=== PATIENT | male | born 1945 | race Caucasian/White ===

== ENCOUNTER 2017-01-05 09:22 | Day surgery (SDC) | payer OTHER, MEDICARE ==
--- NOTE | 2016-12-20 10:12 | GHP ---
[f rep st] PREOP HISTORY AND PHYSICAL DATE OF ADMISSION: [facility] PROBLEM: Right shoulder rotator cuff tear. HISTORY OF PRESENT ILLNESS: The patient is a 71-year-old man, admitted for right shoulder partial acromionectomy and rotator cuff repair. He has had trouble with his right shoulder for about 9 months. He is right handed. He has trouble sleeping on the right shoulder. The shoulder is sore after playing golf. He has been occasionally using ibuprofen. He had an MRI which shows severe partial distal supraspinatus tendon tear. He also has tendinopathy of the infraspinatus. Moderate degenerative change in his AC joint. He tried physical therapy for 6 weeks with only modest improvement. He continues to have soreness. PAST MEDICAL HISTORY: Overall he is in good general health. He is treated for elevated cholesterol. He recently developed some soreness and pain in his right knee. He has had a recent knee MRI. No history of heart disease, stents , DVT, hepatitis, or sleep apnea. CURRENT MEDICATIONS: Atorvastatin 10 mg per day. DRUG ALLERGIES: None. SOCIAL HISTORY: The patient is . He is retired. He does not smoke cigarettes and occasionally drinks alcohol. FAMILY HISTORY: Positive for diabetes, cancer, arthritis and a bleeding tendency. PHYSICAL EXAMINATION: GENERAL: He is an alert, healthy-appearing man. Height 6 feet 1 inch. Weight 200 pounds. BMI 26.4. EYES: The conjunctivae and sclerae are clear. Pupils are round and reactive. MOUTH: Good oral hygiene. No loose teeth. CHEST: Clear. HEART: Regular rhythm. No murmurs. EXTREMITIES: Pertinent findings limited to his right shoulder. He has 160 degrees of abduction and forward flexion. He is not tender over the AC joint. The long head of his biceps is intact. IMAGING STUDIES: Films show moderate AC joint arthritis. The subacromial space is well maintained. He has moderate downward slope to his acromion. IMPRESSION ON ADMISSION: 1. Right shoulder rotator cuff tendinopathy and probable full-thickness tear. 2. Treatment for elevated cholesterol. PLAN: He will undergo a right shoulder partial acromionectomy and rotator cuff repair. The surgery has been described to him, including the risks, complications, expectations, and recovery time. I have stressed the importance of postoperative physical therapy. We have discussed the use of an abduction pillow postoperatively. All his questions have been answered, and he consents to surgery. /[id number]/MODL MTDD
--- NOTE | 2017-01-03 13:41 | GHP ---
[f rep st] PREOP HISTORY AND PHYSICAL DATE OF ADMISSION: 01/05/2017 He will be an outpatient at [facility] on January 05, 2017. PROBLEM: Right knee lateral meniscus tear and loose body. HISTORY OF PRESENT ILLNESS: The patient is a 71-year-old man admitted for right knee arthroscopy with partial meniscectomy, chondroplasty, debridement and removal of loose body. He has had a longstanding history of pain and swelling in the right knee and has a remote history of a prior subtotal partial medial meniscectomy several decades ago. More recently, he has developed mechanical symptoms in the knee including catching and locking which has caused him to fall and is very concerning for him. He had a recent MRI which was a displaced lateral meniscus tear and a loose body residing in the intercondylar notch. PAST MEDICAL HISTORY: High cholesterol, GERD. CURRENT MEDICATIONS: Atorvastatin 10 mg p.o. daily, cholestyramine 4 mg p.o. daily, lansoprazole 30 mg p.o. daily. ALLERGIES: No known drug allergies. SOCIAL HISTORY: The patient is . He has retired. He does not smoke cigarettes. Occasional alcohol. FAMILY HISTORY: Noncontributory. PHYSICAL EXAMINATION: GENERAL: In no acute distress. He is alert and oriented. VITAL SIGNS: Height 6 feet 1 inch. Weight 200 pounds. BMI 26.4. HEAD: Normocephalic/atraumatic. EYES: The conjunctivae and sclerae are clear. CHEST: The lungs are clear to auscultation bilaterally. HEART: Regular rate and rhythm. EXTREMITIES: Examination of the right knee reveals scar from prior surgery. The skin is intact. No erythema or ecchymosis. There is a small effusion. Active range of motion is from roughly 5 to 125 degrees. He has tenderness over the medial and lateral joint lines. Positive Irene's. IMAGING STUDIES: A right knee MRI from December 17 revealed a displaced lateral meniscus tear and an intraarticular loose body in the setting of arthritis. IMPRESSION: Right knee osteoarthritis, unstable lateral meniscus tear and loose body. PLAN: He will undergo a right knee arthroscopy with partial meniscectomy, chondroplasty, debridement, and removal of loose body. The surgery has been described to him including the risks, complications, expectations, and recovery time. All of his questions have been answered, and he consents to the surgery. /[id number]/MODL MTDD
[~2017-01-05 09:22] MED LIST: ACETAMINOPHEN 500 MG TAB PO ONE; BUPIVACAINE 0.5% 30 ML SDV ONE; ceFAZolin 2 GM/DEXTROSE 100 ML IV ONE
[2017-01-05] MEDS ORDERED: LIDOCAINE 1% 2 ML INJ ID PRN (09:51)
[2017-01-05] MEDS ORDERED: LR 1,000 ML IV ONE (09:51)
[2017-01-05] MEDS ORDERED: DEPO METHYLPREDNISOLONE 40 MG/ML SDV ONE (09:56)
--- NOTE | 2017-01-05 10:02 | PDANEPAE ---
ANE History of Present Illness Patient presents for R knee scope ANE Past Medical History - Cardiovascular History Hx Hypertension: No Hx Arrhythmias: No Hx Chest Pain: No Hx Coronary Artery / Peripheral Vascular Disease: No Hx CHF / Valvular Disease: No Hx Palpitations: No - Pulmonary History Hx COPD: No Hx Asthma/Reactive Airway Disease: No Hx Recent Upper Respiratory Infection: No Hx Oxygen in Use at Home: No Hx Sleep Apnea: No Sleep Apnea Screening Result - Last Documented: Negative - Neurologic History Hx Cerebrovascular Accident: No Hx Seizures: No Hx Dementia: No - Endocrine History Hx Diabetes: No - Renal History Hx Renal Disorders: No - Liver History Hx Hepatic Disorders: No - Neurological & Psychiatric Hx Hx Neurological and Psychiatric Disorders: No - Cancer History Hx Cancer: No - Congenital Disorder History Hx Congenital Disorders: No - GI History GERD: mild Hx Gastrointestinal Disorders: Yes Gastrointestinal History Comment: GERD,REFLUX,HIATAL HERNIA. DIAHRREA - Other Health History Other Health History: ECZMA - Chronic Pain History Chronic Pain: Yes (RIGHT KNEE,) - Surgical History Prior Surgeries: GALL BLADDER REMOVED ANE Review of Systems Review of Systems: - Exercise capacity METS (RN): 4 METS ANE Patient History - Allergies Allergies/Adverse Reactions: ANIMAL DANDER,CATS,TREE POLLENS Allergy (Uncoded 08/18/12 11:59) RUNNY NOSE,ITCHY EYES - Home Medications Home medications: home medication list seen and reviewed Home Medications: Atorvastatin Calcium 12/16/16 [Last Taken Unknown] Cholestyramine Packet 12/16/16 [Last Taken Unknown] Fluocinonide 12/16/16 [Last Taken Unknown] Lansoprazole 12/16/16 [Last Taken Unknown] Triamcinolone 0.5% 12/16/16 [Last Taken Unknown] - Anes Hx Anes Hx: no prior problems - Smoking Hx Smoking Status: Never smoked - Family Anes Hx Family Hx Anesthesia Complications: NONE ANE Labs/Vital Signs - Vital Signs Height: 182.88 cm Weight: 81.647 kg ANE Physical Exam - Airway Neck exam: FROM Mallampati Score: Class 2 Mouth exam: normal dental/mouth exam - Pulmonary Pulmonary: no respiratory distress - Cardiovascular Cardiovascular: regular rate and rhythym - ASA Status ASA Status: II ANE Anesthesia Plan Anesthesia Plan: GA w LMA (RBA discussed)
[2017-01-05] MEDS ORDERED: PROPOFOL 200 MG/20 ML VIAL ONE (10:11)
[2017-01-05] MEDS ORDERED: ACETAMINOPHEN 500 MG TAB ONE (10:11)
[2017-01-05] MEDS ORDERED: fentaNYL 100 MCG/2 ML INJ ONE (10:11)
[2017-01-05] MEDS ORDERED: CEFAZOLIN 2 GM/DEXTROSE/100 ML BAG IV ONE (10:11)
[2017-01-05] MEDS ORDERED: LIDOCAINE 2% 5 ML SDV ONE (10:14)
[2017-01-05] MEDS ORDERED: DEXAMETHASONE 4 MG/ML VIAL ONE (10:38)
[2017-01-05] MEDS ORDERED: ONDANSETRON 4 MG/2 ML VIAL ONE (10:38)
[2017-01-05] MEDS ORDERED: NALOXONE HCL 0.4 MG/ML INJ IVP PRN (10:53)
[2017-01-05] MEDS ORDERED: ONDANSETRON 4 MG/2 ML VIAL IVP PRN (10:53)
[2017-01-05] MEDS ORDERED: OXYCODONE/APAP 5/325 TAB PO PRN (10:53)
[2017-01-05] MEDS ORDERED: LR 500 ML IV PRN (10:53)
[2017-01-05] MEDS ORDERED: fentaNYL 100 MCG/2 ML INJ IVP PRN (10:53)
[2017-01-05] MEDS ORDERED: HYDROCODONE/APAP 5/325 TAB PO PRN (10:53)
--- NOTE | 2017-01-05 11:20 | POSTOPPROG ---
Post Op Note Date of Operation: 01/05/17 Surgeon: Nino Mejias Academic Specialist: Mert Mejia Anesthesiologist: Estela Anesthesia: GET(General Endotracheal) Post-op Diagnosis: Right knee torn lateral meniscus. Procedure: Right knee arthroscopic partial lateral meniscectomy. Inf/Abcess present in the surg proc area at time of surgery?: No EBL: Minimal
[2017-01-05 12:14] VITALS: PULSE 56; RESP 18
--- NOTE | 2017-01-05 12:35 | GOP ---
[f rep st] OPERATIVE REPORT DATE OF OPERATION: 01/05/2017 SURGEON: Nino Mejias MD CLIENT ACCOUNT MANAGER: Mert Mejia CFA. ANESTHESIA: General. ANESTHESIOLOGIST: Min Palmer MD. PREOPERATIVE DIAGNOSIS: Right knee torn lateral meniscus. POSTOPERATIVE DIAGNOSIS: 1. Right knee torn lateral meniscus. 2. Early degenerative arthritis in the lateral compartment. PROCEDURE PERFORMED: Right knee arthroscopic partial lateral meniscectomy. FINDINGS: DESCRIPTION OF PROCEDURE: The patient was given 2 g of IV Ancef preoperatively within 60 minutes of surgery. He was placed supine on the operating room table and given general anesthesia by Dr. Palmer. His right lower extremity was prepped with ChloraPrep from the upper thigh tourniquet to the tips o f the toes. It was draped free using sterile sheets, towels, and stockinette. The [facility] time-out was performed to verify the correct patient identity and the correct surgical side and site. A 4 mm diagnostic arthroscope was introduced through an anterolateral portal. An outflow needle was inserted superomedially, and a through and through irrigation system was established. A nerve hook w as introduced through an anteromedial portal after first localizing the portal with an 18-gauge spina l needle. The suprapatellar pouch was inspected and contained some minor chronic synovitis. The medial and lat eral gutters were inspected. He had a small peripheral osteophyte on the rim of his lateral femoral condyle. No loose bodies were present in the gutters. The articular surface of the patella had some minor softening and chondromalacia. The articular surface of his femoral sulcus was in good conditi on. The medial compartment was inspected. He had a previous total open medial meniscectomy 50 years ago. He still had a study rim of his medial meniscus. The articular surface in his medial compartment w as still in quite good condition. The intercondylar notch was inspected. His ACL was absent. I looked carefully and probed with a ner ve hook, and no loose body was present in the notch. The leg was placed in a [id number] position and the lateral compartment was inspected. He had a badly torn and macerated lateral meniscus. This was trimmed with a basket forceps and the motorized shaver. I created a smooth stable rim of meniscus. He had some 1 to 1.5 cm areas of exposed subchon dral bone on the lateral femoral condyle and in the posterior aspect of the lateral tibial plateau. I used a motorized shaver to vacuum out the meniscal debris from the suprapatellar pouch. I then ailyn nspected the pouch and both gutters and the intercondylar notch to looked 1 more time for a loose bod y, and none were present. The puncture wounds were closed with 4-0 nylon simple sutures. Each puncture wound was infiltrated w ith 0.5% Marcaine with epinephrine for a total volume of 20 cc. I then instilled 10 cc of 0.5% Yvonne ine with epinephrine, 4 mg of Duramorph, and 40 mg of Depo-Medrol. The puncture wound was covered with Xeroform gauze and flat 4 x 4s. The knee was wrapped with Kerlix and 6-inch compressive wrap. The tourniquet was deflated. Total tourniquet time was 24 minutes. A long-leg LEAH stocking was applied. He wore a stocking on the opposite leg during the procedure. He was taken to PACU in satisfactory condition. Mert Mejia acted as a assembler surgical garment. His assistance was necessary for safe completion of the procedure. /[id number]/MODL
[2017-01-05 12:37] VITALS: TEMP 97.7
--- NOTE | 2017-01-05 12:55 | POSTANESTH ---
Post Anesthetic Evaluation Cardiovascular Status: Normal, Stable Respiratory Status: Normal, Stable Level of Consciousness/Mental Status: Can Participate in Eval Pain Control: Adequate, Prn Tx Ordered Nausea/Vomiting Control: Adequate, Prn Tx Ordered Complications Possibly Related to Anesthesia: None Noted
[2017-01-05 13:08] VITALS: BP 115/65; O2SAT 96
== END 2017-01-05 13:08 | disposition home or self-care (01) ==
LOC: FSGY 09:22
PROVIDERS: ATTEND Orthopaedic Surgery
PROC: 0SBC4ZZ Excision of Right Knee Joint, Percutaneous Endoscopic Approach (ICD-10-PCS; principal; 2017-01-05 09:30)
PROC: 0SCC4ZZ Extirpation of Matter from Right Knee Joint, Percutaneous Endoscopic Approach (ICD-10-PCS; principal; 2017-01-05 09:30)
DX: M23.261 Derangement of other lateral meniscus due to old tear or injury, right knee (principal); M17.11 Unilateral primary osteoarthritis, right knee; M23.41 Loose body in knee, right knee; E78.5 Hyperlipidemia, unspecified; K21.9 Gastro-esophageal reflux disease without esophagitis
CPT/HCPCS: J0171; J0690; J1030; J1100; J2405; J2704; J3010

== ENCOUNTER 2017-04-13 11:48 | Day surgery (SDC) | payer OTHER, MEDICARE ==
[2017-04-13] MEDS ORDERED: ONDANSETRON DISINTEGRATING 4 MG TAB PO ONE (11:57)
[2017-04-13] MEDS ORDERED: ceFAZolin 2 GM/SWFI 2 GM/20 ML SYR IVP ONE (11:57)
[2017-04-13] MEDS ORDERED: ACETAMINOPHEN 500 MG TAB PO ONE (11:57)
[2017-04-13] MEDS ORDERED: BUPIVACAINE/EPI 0.5% 30 ML SDV ONE ×2 (11:59→12:51)
[2017-04-13] MEDS ORDERED: LR 1,000 ML IV ONE (12:06)
[2017-04-13] MEDS ORDERED: LIDOCAINE 1% 2 ML INJ ID PRN (12:06)
[2017-04-13] MEDS ORDERED: ONDANSETRON DISINTEGRATING 4 MG TAB ONE ×2 (12:40)
[2017-04-13] MEDS ORDERED: MIDAZOLAM 2 MG/2 ML VIAL IVP ONE (13:24)
--- NOTE | 2017-04-13 13:46 | PDANEPAE ---
ANE History of Present Illness Torn rotator cuff ANE Past Medical History - Cardiovascular History Hx Hypertension: No Hx Arrhythmias: No Hx Chest Pain: No Hx Coronary Artery / Peripheral Vascular Disease: No Hx CHF / Valvular Disease: No Hx Palpitations: No - Pulmonary History Hx COPD: No Hx Asthma/Reactive Airway Disease: No Hx Recent Upper Respiratory Infection: No Hx Oxygen in Use at Home: No Hx Sleep Apnea: No Sleep Apnea Screening Result - Last Documented: Negative - Neurologic History Hx Cerebrovascular Accident: No Hx Seizures: No Hx Dementia: No - Endocrine History Hx Diabetes: No - Renal History Hx Renal Disorders: No - Liver History Hx Hepatic Disorders: No - Neurological & Psychiatric Hx Hx Neurological and Psychiatric Disorders: No - Cancer History Hx Cancer: No - Congenital Disorder History Hx Congenital Disorders: No - GI History Hx Gastrointestinal Disorders: Yes Gastrointestinal History Comment: GERD,REFLUX,HIATAL HERNIA. DIAHRREA - Other Health History Other Health History: ECZMA - Chronic Pain History Chronic Pain: Yes (RIGHT KNEE, TMJ) - Surgical History Prior Surgeries: R knee scope. cholecystectomy ANE Review of Systems Review of Systems: - Exercise capacity METS (RN): 4 METS ANE Patient History - Allergies Allergies/Adverse Reactions: ANIMAL DANDER,CATS,TREE POLLENS Allergy (Mild, Uncoded 03/11/17 15:35) RUNNY NOSE,ITCHY EYES - Home Medications Home medications: home medication list seen and reviewed Home Medications: Atorvastatin Calcium 12/16/16 [Last Taken 04/13/17 07:00] Cholestyramine Packet 12/16/16 [Last Taken 04/12/17 19:00] Fluocinonide 12/16/16 [Last Taken 04/06/17] Lansoprazole 12/16/16 [Last Taken 04/13/17 07:00] Triamcinolone 0.5% 12/16/16 [Last Taken 04/06/17] - NPO status NPO Since - Liquids (Date): 04/12/17 NPO Since - Liquids (Time): 22:00 NPO Since - Solids (Date): 04/12/17 NPO Since - Solids (Time): 19:00 - Anes Hx Anes Hx: no prior problems - Smoking Hx Smoking Status: Never smoked - Family Anes Hx Family Hx Anesthesia Complications: NONE ANE Labs/Vital Signs - Vital Signs Blood Pressure: 107/68 Heart Rate: 63 Respiratory Rate: 16 O2 Sat (%): 97 Height: 185.42 cm Weight: 81.647 kg ANE Anesthesia Plan Anesthesia Plan: GA w LMA (Surgeon request for ISB for POPM) Regional Anesthesia: interscalene BP NB
[2017-04-13] MEDS ORDERED: PROPOFOL 200 MG/20 ML VIAL ONE (13:54)
[2017-04-13] MEDS ORDERED: fentaNYL 100 MCG/2 ML INJ ONE (13:54)
[2017-04-13] MEDS ORDERED: ROPIVACAINE HCL 150 MG/30 ML INJ ONE (13:55)
[2017-04-13] MEDS ORDERED: NALOXONE HCL 0.4 MG/ML INJ IVP PRN (14:44)
[2017-04-13] MEDS ORDERED: fentaNYL 100 MCG/2 ML INJ IVP PRN (14:44)
[2017-04-13] MEDS ORDERED: ONDANSETRON 4 MG/2 ML VIAL IVP PRN ×2 (14:44→15:50)
[2017-04-13] MEDS ORDERED: HYDROmorphONE/DILAUDID 1 MG/ML INJ IVP PRN (14:44)
--- NOTE | 2017-04-13 15:48 | POSTOPPROG ---
Post Op Note Date of Operation: 04/13/17 Surgeon: Nino Mejias Physician Assistant Psychiatry: Kamini Anesthesiologist: Nilesh Anesthesia: GET(General Endotracheal) Post-op Diagnosis: Right shoulder torn rotator cuff Procedure: Right shoulder subacromial decompression and open rotator cuff repair Inf/Abcess present in the surg proc area at time of surgery?: No EBL: 50-100
[2017-04-13] MEDS ORDERED: OXYCODONE/APAP 5/325 TAB PO PRN (15:50)
[2017-04-13] MEDS ORDERED: ACETAMINOPHEN 325 MG TAB PO PRN (15:50)
[2017-04-13] MEDS ORDERED: KETOROLAC 15 MG/1 ML SDV IVP ONE (15:50)
[2017-04-13] MEDS ORDERED: NS 1,000 ML IV SCH (16:00)
[2017-04-13 16:06] VITALS: TEMP 97.5
[2017-04-13] MEDS ORDERED: KETOROLAC 15 MG/1 ML SDV ONE (16:09)
[2017-04-13 16:23] VITALS: RESP 14
[2017-04-13 16:41] VITALS: BP 110/67; PULSE 61; O2SAT 100
--- NOTE | 2017-04-14 02:26 | GOP ---
[f rep st] OPERATIVE REPORT DATE OF OPERATION: 04/13/2017 SURGEON: Nino Mejias MD BRANCH EXAMINER: 1. Cortes Asencio, PAC. 2. Mert Mejia AUTO BODY TECHNICIAN. ANESTHESIA: Interscalene nerve block and general anesthesia. ANESTHESIOLOGIST: Jim Galloway MD. PREOPERATIVE DIAGNOSIS: Right shoulder torn rotator cuff. POSTOPERATIVE DIAGNOSIS: Right shoulder torn rotator cuff. PROCEDURE PERFORMED: Right shoulder partial acromionectomy and open rotator cuff repair. FINDINGS: ESTIMATED BLOOD LOSS: 50 cc or less. Luis Asencio and Mert Mejia acted as surgical assistants. Their assistance was a medical necess ity. DESCRIPTION OF PROCEDURE: The patient was given 2 g of IV Ancef preoperatively. He was placed supin e on the operating room table and given an interscalene nerve block by Dr. Galloway on the right side. He was then given general anesthesia by LMA. He was positioned in a beach chair semi-sitting position. His left arm was placed across his chest and was carefully supported and padded. The right shoulder, neck, and upper extremity were all prepped with ChloraPrep. They were draped yamlia e using sterile sheets, towels, stockinette, and Ioban plastic adhesive drape. The [employer] time-out was performed to verify the correct patient identity and the c orrect surgical side and site. I made a 2-inch slightly oblique anterior shoulder incision beginning up over the acromion and extend ing distally and slightly laterally. Subcutaneous tissues were sharply divided, and hemostasis was o btained using electrocautery. I carefully dissected the deltoid origin off the anterolateral corner of the acromion. I made a vertical split in the deltoid musculature to created AT shaped opening. T here was a 1 cm full-thickness tear in the supraspinatus tendon with a small amount of retraction. The humeral head was depressed. Partial acromionectomy was performed with the power oscillating saw. He had a thick acromion and I had made an aggressive cut. I created a smooth surface on the unders urface of the acromion. With a scalpel I ellipsed the edges of the rotator cuff tear. This primarily involved the supraspina tus with just a little extension into the infraspinatus. I used a bur to create a trough at the shou lder of the greater tuberosity. I then used a curved tech to create 3 intraosseous holes in the grea ter tuberosity. Two #2 FiberWire sutures were inserted into the free edge of the torn portion of the rotator cuff. T hese were inserted in a modified Floral's type of stitch. The sutures were passed through the inter osseous tunnels. I then inserted 3 simple sutures through the edge of the rotator cuff tendon, and p assing through the interosseous tunnels. His arm was held in about 40 degrees of abduction and all the sutures were tied. This created a very firm stable repair. I could lower his arm to his side without distracting the tendon repair. The wound was irrigated with saline. The deltoid was repaired back to the acromion through holes in the acromion using #2 Mersilene sutures. 20 cc of 0.5% Marcaine with epinephrine were injected into the subcutaneous tissues around the skin i ncision. Subcutaneous tissues were closed with interrupted 2-0 Vicryl sutures. The skin was closed with a 3-0 Monocryl subcuticular suture. The skin edges were reapproximated and sealed with Dermabon d glue. The wound was covered with a Strip of Telfa, and a small piece of clear plastic Tegaderm. He was immobilized in a sling with a small abduction pillow. He was awakened from anesthesia, transferred to his gurney, and taken to PACU in satisfactory conditi on. There were no recognized intraoperative complications. /[id number]/MODL
== END 2017-04-13 17:54 | disposition home or self-care (01) ==
LOC: FSGY 11:48
PROVIDERS: ATTEND Orthopaedic Surgery
DX: M75.111 Incomplete rotator cuff tear or rupture of right shoulder, not specified as traumatic (principal); M19.011 Primary osteoarthritis, right shoulder; M65.811 Other synovitis and tenosynovitis, right shoulder; E78.5 Hyperlipidemia, unspecified; K21.9 Gastro-esophageal reflux disease without esophagitis; K44.9 Diaphragmatic hernia without obstruction or gangrene
CPT/HCPCS: J0690; J1885; J2250; J2704; J2795; J3010

== ENCOUNTER → 2018-06-15 | Outpatient (CLI) | payer OTHER, MEDICARE | LOC: FIMAGING 13:07 | PROVIDERS: ATTEND Orthopaedic Surgery | DX: M17.11 Unilateral primary osteoarthritis, right knee (principal) ==

== ENCOUNTER 2018-07-04 06:29 | Observation (INO) | payer OTHER, MEDICARE ==
[~2018-07-04 06:29] MED LIST changes: -ACETAMINOPHEN 500 MG TAB PO ONE; -BUPIVACAINE 0.5% 30 ML SDV ONE; +POVIDONE-IODINE 20 ML in SODIUM CL IRRIG SOLUTION 500 ML IRR ONE; +ROPIVACAINE 0.2% 80 MG, EPINEPHrine 0.2 MG, KETOROLAC TROMETHAMINE 30 MG in SYRINGE 0 ML IU ONE; +TRANEXAMIC ACID 1,000 MG in NS 100 ML IV ONE; +TRANEXAMIC ACID 3,000 MG in NS (SYRINGE) 50 ML IRR ONE; -ceFAZolin 2 GM/DEXTROSE 100 ML IV ONE
[2018-07-04] MEDS ORDERED: DEXAMETHASONE 4 MG/ML VIAL IVP ONE (06:44)
[2018-07-04] MEDS ORDERED: FAMOTIDINE 20 MG TAB PO ONE (06:44)
[2018-07-04] MEDS ORDERED: ceFAZolin 2 GM/DEXTROSE 100 ML IV ONE (06:44)
[2018-07-04] MEDS ORDERED: GABAPENTIN 300 MG CAP PO ONE (06:44)
[2018-07-04] MEDS ORDERED: ONDANSETRON 4 MG/2 ML VIAL IVP ONE (06:44)
[2018-07-04] MEDS ORDERED: ACETAMINOPHEN 325 MG TAB PO ONE (06:44)
[2018-07-04] MEDS ORDERED: LR 1,000 ML IV ONE (06:45)
[2018-07-04] MEDS ORDERED: VANCOMYCIN 1 GM VIAL ONE (07:44)
[2018-07-04] MEDS ORDERED: ceFAZolin 1 GM/5 ML SYR ONE (07:44)
[2018-07-04] MEDS ORDERED: TRANEXAMIC ACID 3,000 MG/50 ML BAG IRR ONE (07:44)
--- NOTE | 2018-07-04 07:46 | PDANEPAE ---
ANE History of Present Illness OA here for TKA ANE Past Medical History - Cardiovascular History Hx Hypertension: No Hx Arrhythmias: No Hx Chest Pain: No Hx Coronary Artery / Peripheral Vascular Disease: No Hx CHF / Valvular Disease: No Hx Palpitations: No Cardiovascular History Comment: high chol- on statin - Pulmonary History Hx COPD: No Hx Asthma/Reactive Airway Disease: No Hx Recent Upper Respiratory Infection: No Hx Oxygen in Use at Home: No Hx Sleep Apnea: No Sleep Apnea Screening Result - Last Documented: Negative - Neurologic History Hx Cerebrovascular Accident: No Hx Seizures: No Hx Dementia: No - Endocrine History Hx Diabetes: No - Renal History Hx Renal Disorders: No - Liver History Hx Hepatic Disorders: No - Neurological & Psychiatric Hx Hx Neurological and Psychiatric Disorders: No - Cancer History Hx Cancer: No - Congenital Disorder History Hx Congenital Disorders: No - GI History Hx Gastrointestinal Disorders: Yes Gastrointestinal History Comment: GERD,REFLUX,HIATAL HERNIA. DIAHRREA - Other Health History Other Health History: ECZMA - Chronic Pain History Chronic Pain: Yes (RIGHT KNEE, TMJ) - Surgical History Prior Surgeries: R knee scope. cholecystectomy ANE Review of Systems Review of Systems: - Exercise capacity METS (RN): 4 METS ANE Patient History - Allergies Allergies/Adverse Reactions: ANIMAL DANDER,CATS,TREE POLLENS Allergy (Mild, Uncoded 06/26/18 10:40) RUNNY NOSE,ITCHY EYES - Home Medications Home Medications: Atorvastatin Calcium [Lipitor 10 mg (*)] 10 mg PO DAILY #0 12/16/16 [Last Taken 07/04/18] Lansoprazole [Prevacid] 30 mg PO DAILY #0 12/16/16 [Last Taken 07/04/18] Triamcinolone 0.1% [Triamcinolone 0.1% Cream (*)] 1 rikki TP DAILY PRN #0 [Last Taken 07/02/18] Cetirizine [ZyrTEC 10 mg (*)] 10 mg PO DAILY 06/20/18 [Last Taken 07/02/18] Ibuprofen [Motrin (*)] 200 mg PO DAILY PRN 06/20/18 [Last Taken 06/26/18] Ondansetron Odt [Zofran Odt 4 mg (*)] 4 mg PO Q6HRS PRN 06/20/18 [Last Taken Unknown] Psyllium Husk (with Sugar) [Metamucil Packet] 1 each PO DAILY 06/20/18 [Last Taken 07/03/18] celeCOXIB [Celebrex (*)] 200 mg PO DAILY 06/20/18 [Last Taken 07/03/18] - NPO status NPO Status: no food or drink >8 hours NPO Since - Liquids (Date): 07/04/18 NPO Since - Liquids (Time): 04:30 NPO Since - Solids (Date): 07/03/18 NPO Since - Solids (Time): 18:00 - Anes Hx Anes Hx: no prior problems - Smoking Hx Smoking Status: Never smoked - Alcohol Use Alcohol Use: Occasionally - Family Anes Hx Family Anes Hx: none Family Hx Anesthesia Complications: NONE ANE Labs/Vital Signs - Vital Signs Blood Pressure: 117/71 Heart Rate: 64 Respiratory Rate: 18 O2 Sat (%): 95 Height: 185.42 cm Weight: 83.915 kg ANE Physical Exam - Airway Neck exam: FROM Mallampati Score: Class 2 Mouth exam: normal dental/mouth exam - Pulmonary Pulmonary: no respiratory distress, clear to auscultation - Cardiovascular Cardiovascular: regular rate and rhythym, no murmur, rub, or gallop - ASA Status ASA Status: II ANE Anesthesia Plan Anesthesia Plan: GA with mask, spinal Regional Anesthesia: continuous NB, adductor canal FNB Total IV Anesthesia: Yes
[2018-07-04] MEDS ORDERED: MIDAZOLAM 2 MG/2 ML VIAL IVP ONE (07:47)
--- NOTE | 2018-07-04 07:53 | PDHPUP ---
History & Physical Update H&P update statement: This history and physical update is based on an assessment of the patient which was completed after admission or registration (within 24 hours), but prior to the surgery/procedure. H&P update: H&P reviewed & patient examined
[2018-07-04] MEDS ORDERED: PROPOFOL/EMULSION 500 MG/50 ML BOTTLE IV ONE ×2 (08:03→09:14)
[2018-07-04] MEDS ORDERED: HYDROCODONE/APAP 5/325 TAB PO PRN (08:47)
[2018-07-04] MEDS ORDERED: HYDROmorphONE/DILAUDID 1 MG/ML INJ IVP PRN (08:47)
[2018-07-04] MEDS ORDERED: oxyCODONE IR 5 MG TAB PO PRN ×2 (08:47→10:28)
[2018-07-04] MEDS ORDERED: ONDANSETRON 4 MG/2 ML VIAL IVP PRN ×2 (08:47→10:28)
[2018-07-04] MEDS ORDERED: fentaNYL 100 MCG/2 ML INJ IVP PRN (08:47)
[2018-07-04] MEDS ORDERED: NALOXONE HCL 0.4 MG/ML INJ IVP PRN (08:47)
[2018-07-04] MEDS ORDERED: ACETAMINOPHEN 500 MG TAB PO PRN (08:47)
--- NOTE | 2018-07-04 10:13 | POSTOPPROG ---
Post Op Note Date of Operation: 07/04/18 Surgeon: Nino Mejias Crab Backer: Kamini Anesthesiologist: Charlotte Anesthesia: IV Sedation, Spinal Pre-op Diagnosis: Right knee severe degenerative arthritis. Procedure: Right total knee arthroplasty, Andrea robot assisted. Inf/Abcess present in the surg proc area at time of surgery?: No EBL: 50-100 (Adductor canal block with indwelling catheter in PACU.)
[2018-07-04] MEDS ORDERED: traMADol 50 MG TAB PO PRN (10:28)
[2018-07-04] MEDS ORDERED: PROMETHAZINE HCL 25 MG/ML INJ IVP PRN (10:28)
[2018-07-04] MEDS ORDERED: MAGNESIUM HYDROXIDE 30 ML UDCUP PO PRN (10:28)
[2018-07-04] MEDS ORDERED: DIPHENOXYLATE/ATROPINE LOMOTIL 1 TAB PO PRN (10:28)
[2018-07-04] MEDS ORDERED: LACTULOSE 20 GM/30 ML UDCUP PO PRN (10:28)
[2018-07-04] MEDS ORDERED: BISACODYL 10 MG SUPP PR PRN (10:28)
[2018-07-04] MEDS ORDERED: TEMAZEPAM 15 MG CAP PO PRN (10:28)
[2018-07-04] MEDS ORDERED: ONDANSETRON DISINTEGRATING 4 MG TAB PO PRN (10:28)
[2018-07-04] MEDS ORDERED: NS 500 ML IV PRN (10:28)
[2018-07-04] MEDS ORDERED: PROMETHAZINE HCL 25 MG SUPPR PR PRN (10:28)
[2018-07-04] MEDS ORDERED: METOCLOPRAMIDE 10 MG/2 ML VIAL IVP PRN (10:28)
[2018-07-04] MEDS ORDERED: CYCLOBENZAPRINE 10 MG TAB PO PRN (10:28)
[2018-07-04] MEDS ORDERED: POLYETHYLENE GLYCOL 3350 17 GM PKT PO PRN (10:28)
[2018-07-04] MEDS ORDERED: diphenhydrAMINE 25 MG CAP PO PRN (10:28)
--- NOTE | 2018-07-04 10:28 | POSTANESTH ---
Post Anesthetic Evaluation Cardiovascular Status: Normal, Stable, Similar to Pre-Op Cond Respiratory Status: Normal, Stable, Similar to Pre-op Cond. Level of Consciousness/Mental Status: Mildly Sleepy, Arousable Pain Control: Adequate, Prn Tx Ordered Nausea/Vomiting Control: Adequate, Prn Tx Ordered Complications Possibly Related to Anesthesia: None Noted
[2018-07-04] MEDS ORDERED: LR 1,000 ML IV SCH (10:30)
[2018-07-04] MEDS ORDERED: oxyCODONE IR 5 MG TAB ONE (11:17)
[2018-07-04] MEDS: KETOROLAC 15 MG/1 ML SDV IVP SCH ×3 (12:55→23:36)
--- NOTE | 2018-07-04 13:13 | GOP ---
[f rep st] OPERATIVE REPORT DATE OF OPERATION: 07/04/2018 SURGEON: Nino Mejias MD SIGNS SALES REPRESENTATIVE: Cortes Asencio, PAC and Mert Mejia CFA. ANESTHESIA: A combination of Marcaine, spinal, IV sedation, and adductor canal block. ANESTHESIOLOGIST: Dr. Patrick Porter. PREOPERATIVE DIAGNOSIS: Right knee severe degenerative arthritis. POSTOPERATIVE DIAGNOSIS: Right knee severe degenerative arthritis. PROCEDURE PERFORMED: July 04, 2018, a right total knee arthroplasty, Glynn Triathlon, Andrea robot a ssisted, cemented. FINDINGS: DESCRIPTION OF PROCEDURE: The patient was given 2 g of IV Ancef preoperatively within 60 minutes of surgery. He also received 1000 mg of preoperative IV tranexamic acid. He was placed on the operatin g room table and given spinal anesthesia with Marcaine by Dr. Patrick Porter. He was then placed supine and given IV sedation. A Estrella catheter was not used. He wore a LEAH stocking and SCD on the nonoper ative leg. His right lower extremity was prepped with ChloraPrep from the upper thigh tourniquet to the tips of the toes. It was draped free using sterile sheets, stockinette, and Ioban plastic adhesi ve drape. The lower leg was wrapped with compressive Coban. The [employer] time-out was performed to verify the correct patient identity and the c orrect surgical side and site. The [place] time-out was also performed. The Queraltayo leg holding ameena ce was sterilely attached to the operating room table and used throughout the procedure to help posit ion the knee. Two 3 mm partially threaded pins were inserted in a bicortical fashion in the anterome dial cortex of the tibia through puncture wounds about 4 mm distal to the tibial tubercle. At this p oint, the leg was exsanguinated with a 6-inch compressive wrap, and the tourniquet was inflated to 25 0 mmHg. A straight midline incision made centered on the patella. He had an old previous long medial parapat ellar incision. I left adequate skin bridges between the 2 incisions. Subcutaneous tissues were sha rply divided and hemostasis was obtained using electrocautery. A medial subcutaneous flap was develo ped and the capsule and synovium were opened in a medial parapatellar fashion. The medial capsule an d periosteum were elevated off the rim of the medial tibial plateau. Two partially threaded 3 mm pin s were inserted in the medial cortex of the distal femur in the supracondylar region and just proxima l to the medial collateral ligament attachment. These were inserted through the incision. The femor al check point was inserted adjacent to the 2 bicortical pins. The tibial check point was inserted o n the anteromedial cortex of the tibia about an inch distal to the joint line. The computer arrays w ere attached and I confirmed that the femoral and tibial rays were both visualized by the computer. The bony anatomy of the knee was registered on the computer starting with the center of rotation of t he femoral head, followed by the medial and lateral malleoli. The femoral and tibial surface anatomy was registered. Osteophytes were removed prior to joint balancing. I performed dynamic joint balancing. His preoperative plan called for a size 6 femoral component, a size 7 tibial component. In order to achieve 18 mm medial and lateral gaps in extension and flexion, I moved the femoral component distally 1 mm. I moved the tibial component proximally 2 mm and I add ed 1 degree of varus to the tibial component. He had a 4 degrees of flexion of the femoral component . The robotic saw was position and registered. I made the appropriate cuts on the distal femur. The r obot was registered for the tibia and the proximal tibial cut was made. I used the appropriate jig t o create a notch in the distal femur using a power sagittal saw to accommodate the posterior stabiliz ed femoral component. The size 6 femoral component was applied and I was careful to center it on the distal femur. The posterior compartment was cleared of meniscal remnants. Osteophytes were removed from the back o f the femoral condyles. 40 mL of the joint anesthetic cocktail were injected into the posterior caps ule, the quadriceps muscle and tendon areas, and the subcutaneous tissues along the skin edges. The size 7 tibial trial was applied and positioned. I used the central thin punch. The trial components were applied. With the trial components in place, I selected a 9 mm posterior stabilized tibial ins ert. The knee came to full extension and flexed to 140 degrees. The medial and lateral collateral l igaments were stable in full extension and 90 degrees of flexion. The press-fit tibia was applied and tapped securely into place. It was a good tight fit. The femora l component was tapped securely into place and was also very tight. The 9 mm Triathlon plastic inser t was inserted and locked into place. The tourniquet was deflated and the total tourniquet time was 62 minutes. I then prepared the patell a. The original thickness of the patella was measured. Peripheral osteophytes were removed. I cut a flat surface on the back of the patella. The 40 mm x 11 mm was selected. I removed enough bone fr om the patella, such that the remaining bone, plus the thickness of the patellar component recreated the original thickness of the patella. The composite thickness was 26 mm. The press-fit patellar co mponent was applied and tightened. Patellar tracking was checked. It was excellent without any digital pressure. The wound was thoroughly irrigated with a dilute Betadine solution. 50 cc of tranexamic acid solutio n were irrigated into the joint. The vastus medialis portion of the extensor mechanism was repaired with several interrupted figure-of -eight #2 FiberWire sutures. The capsule and synovium were closed first with multiple interrupted fi [id number] PDS sutures, followed by a running #2 barbed Ethicon Stratafix PDO suture. The subcu taneous tissues were closed with a running 0 barbed Ethicon Stratafix Monoderm suture. The skin was closed with a running 3-0 barbed Ethicon Stratafix Monoderm subcuticular suture. The skin was sealed with half-inch Steri-Strips. The wound was covered with a large sterile Mepilex waterproof dressing . A long-leg LEAH stocking was applied, followed by a 6 inch compressive wrap. SCD was applied, foll owed by the cooling device. The sacral Mepilex dressing was applied. I used a size 6 Tim Triathlon press-fit posterior stabilized femoral component, a size 7 Triathlo n press-fit tibial component, a 38 mm x 11 mm asymmetric press-fit patellar component, and a 9 mm pos terior stabilized tibial insert. The sponge and needle count were correct on 2 occasions. He was awakened from anesthesia, transferred to his gurney, and taken to PACU in satisfactory conditi on. There were no recognized intraoperative complications. In the PACU, for additional postoperative pain control, Dr. Porter performed an adductor canal block w ith an indwelling catheter. Luis Asencio and Mert Mejia acted as surgical assistants. Their assistance was a medical necess ity for safe completion of the procedure. /[id number]/MODL
[2018-07-04] MEDS: ACETAMINOPHEN 325 MG TAB PO SCH ×2 (16:32→23:37)
[2018-07-04] MEDS: ceFAZolin 2 GM/DEXTROSE 100 ML IV SCH ×2 (16:35→23:37)
[2018-07-04] MEDS: ASPIRIN 325 MG TAB PO SCH (20:34)
[2018-07-04] MEDS: FAMOTIDINE 20 MG TAB PO SCH (20:34)
[2018-07-04] MEDS: SENNOSIDES/DOCUSATE SODIUM TAB PO SCH (20:34)
[2018-07-05] MEDS: KETOROLAC 15 MG/1 ML SDV IVP SCH (05:02)
[2018-07-05] MEDS: ACETAMINOPHEN 325 MG TAB PO SCH ×2 (05:03→11:54)
[2018-07-05] MEDS ORDERED: LIPID EMULSION 20% 100 ML IV PRN (07:15)
[2018-07-05 07:36] VITALS: BP 107/71
[2018-07-05] MEDS ORDERED: FERROUS SULFATE 325 MG TAB PO SCH (08:00)
--- NOTE | 2018-07-05 08:16 | PDPAINCON ---
Pain Management Consultation Patient referred by : Magalie - Subjective Pain at rest (/10): 2 Pain with activity (/10): 4 Pain is: low, well controlled Activity: able to ambulate, participating in PT - Objective Technique: continuous peripheral nerve block Site: femoral Catheter site: clean, dry, intact, no erythema/edema/exudate Sensory and motor exam: consistent with block Vital signs: stable - Assessment/Plan Additional comments: Bolused Catheter 0.5% Ropiv 20cc
[2018-07-05] MEDS: SENNOSIDES/DOCUSATE SODIUM TAB PO SCH (08:17)
[2018-07-05] MEDS: FAMOTIDINE 20 MG TAB PO SCH (08:18)
[2018-07-05] MEDS: ASPIRIN 325 MG TAB PO SCH (08:18)
[2018-07-05] MEDS ORDERED: ATORVASTATIN CALCIUM 10 MG TAB PO SCH (09:00)
[2018-07-05] MEDS ORDERED: CETIRIZINE 10 MG TAB PO SCH (09:00)
[2018-07-05] MEDS ORDERED: PANTOPRAZOLE SODIUM 40 MG TAB PO SCH (09:00)
--- NOTE | 2018-07-05 09:26 | SOAPPROG ---
SOAP Progress Note Assessment/Plan: Assessment: Afebrile. Up and walking. Needed cath one time last night, but voiding spont. today. H/H is good. Films look good. Min pain so far. Plan:Continue PT. Std long alignment film. D/C later today. 07/05/18 09:25 Objective: Vital Signs Temp Pulse Resp BP Pulse Ox 36.5 C 72 18 107/71 94 07/05/18 07:36 07/05/18 07:36 07/05/18 07:36 07/05/18 07:36 07/05/18 07:36 Laboratory Results 07/05/18 05:32 07/04/18 07/05/18 07/06/18 05:59 05:59 05:59 Intake Total 1850 300 Output Total 1650 Balance 200 300 ICD10 Worksheet Patient Problems: Problems Problem Status Onset Osteoarthritis of right knee Acute
--- NOTE | 2018-07-05 10:27 | GDS ---
[f rep st] DISCHARGE SUMMARY ADMISSION DIAGNOSIS: Right knee arthritis. DISCHARGE DIAGNOSIS: Right knee arthritis. TEST PERFORMED: July 04, 2018 a right total knee arthroplasty, Andrea robot assisted. POSTOPERATIVE COMPLICATIONS: None. CONDITION ON DISCHARGE: Improved. DESCRIPTION OF HOSPITAL COURSE: The patient was admitted to the hospital on the morning of surgery. His admission CBC was normal. The same day, under a combination of Marcaine spinal, IV sedation, an d adductor canal block he underwent a Andrea robot assisted right total knee arthroplasty. Postoperati vely, he was treated with multimodal DVT prophylaxis including aspirin. On the first postoperative d ay, the hemoglobin and hematocrit were 12.4 and 35.7. He was seen by Physical Therapy and made good progress with ambulation and stairs and knee range of motion. By the time of discharge, he was afebr ile. He required urinary catheterization one time on the evening of surgery, but was able to void sp ontaneously after that. DISPOSITION: The patient discharged to his home. He will go to outpatient physical therapy. Contin ue aspirin 325 mg p.o. daily for 21 days. He has prescriptions for oxycodone, tramadol and Celebrex for pain control. I will see him back in the office on July 13, 2018. If there are any problems he is to call me at the office. Use LEAH stockings for 1 week. /[id number]/MODL
--- NOTE | 2018-07-05 11:21 | ASMTLACE ---
[facility] Length of stay for Answers: 2 days current admission Acuity / Level of Answers: No Care: Did the patient have an inpatient admission? Comorbidities - select Answers: Opioid dependence all that apply / Chronic pain # of Emergency department Answers: 0 visits in the last 6 months Score: 6 Date Signed: 07/05/2018 11:21 AM Electronically Signed By:KARYNA Capellan
--- NOTE | 2018-07-05 11:23 | ASMTCMCOM ---
CM Note CM Note Notes: Pt had planned knee surgery, resides with spouse. PT rec home, MD rec outpatient. No CM d/c needs identified. Date Signed: 07/05/2018 11:23 AM Electronically Signed By:KARYNA Capellan
== END 2018-07-05 12:29 | disposition home or self-care (01) ==
LOC: F3N 06:29
PROVIDERS: ADMIT Orthopaedic Surgery; ATTEND Orthopaedic Surgery
DX: M17.11 Unilateral primary osteoarthritis, right knee (principal); E78.5 Hyperlipidemia, unspecified; K21.9 Gastro-esophageal reflux disease without esophagitis; K44.9 Diaphragmatic hernia without obstruction or gangrene
CPT/HCPCS: 27447; 73560; 77073; 88311; 97110; 97116; 97161; 97165; 97530; 97535; C1776; J0171; J0690; J1100; J1885; J2250; J2405; J2704; J2795; J3370